=== PATIENT | female | born 1945 | race Caucasian/White ===

== ENCOUNTER → 2016-12-09 | Outpatient (REF) | payer MEDICARE, OTHER ==
[2016-12-09 11:55] LABS: BASO # 0.1 K/mm3 (0.0-0.2); BASO % 1.4 % (0.0-1.0); EOS # 0.2 K/mm3 (0.0-0.50); EOS % 3.3 % (0.0-3.0); LARGE UNSTAINED CELL # 0.1 K/mm3 (0.0-0.4); LARGE UNSTAINED CELL % 2.7 % (0.0-4.0); LYMPH % 38.2 % (24.0-44.0); MEAN CORPUSCULAR HEMOGLOBIN 30.2 pg (27.0-33.0); MEAN CORPUSCULAR VOLUME 91.6 fl (80.0-96.0); MONO # 0.4 K/mm3 (0.0-0.8); MONO % 7.8 % (0.0-5.0); NEUTROPHILS # 2.3 K/mm3 (1.8-7.7); NEUTROPHILS % 46.7 % (36.0-66.0); PLATELET COUNT, AUTOMATED 232 k/mm3 (150-450)
[2016-12-09 12:48] LABS: ALBUMIN 3.8 GM/DL (3.2-5.2); ALBUMIN/GLOBULIN RATIO 1.41 (1.00-1.93); ALKALINE PHOSPHATASE 43 U/L (45-117); ALT/SGPT 26 U/L (12-78); ANION GAP 10 MEQ/L (8-16); AST/SGOT 13 U/L (15-37); BILIRUBIN,TOTAL 0.8 MG/DL (0.2-1.0); BLOOD UREA NITROGEN 21 MG/DL (7-18); CALCIUM LEVEL 9.1 MG/DL (8.8-10.2); CARBON DIOXIDE LEVEL 30 MEQ/L (21-32); CHLORIDE LEVEL 101 MEQ/L (98-107); CHOLESTEROL LEVEL 184 MG/DL (<200); CREATININE FOR GFR 0.66 MG/DL (0.55-1.02); GLOMERULAR FILTRATION RATE > 60.0 (>39); GLUCOSE, FASTING 136 MG/DL (83-110); POTASSIUM SERUM 4.3 MEQ/L (3.5-5.1); SODIUM LEVEL 141 MEQ/L (136-145); TOTAL PROTEIN 6.5 GM/DL (6.4-8.2); TRIGLYCERIDES LEVEL 77 MG/DL (<150)
== END ==
LOC: M LABDRAW1 11:24
PROVIDERS: ATTEND Emergency Medicine
DX: E11.9 Type 2 diabetes mellitus without complications (principal); I10 Essential (primary) hypertension; E78.2 Mixed hyperlipidemia; M54.81 Occipital neuralgia

== ENCOUNTER → 2017-06-09 | Outpatient (CLI) | payer MEDICARE, OTHER ==
[~2017-06-09] VITALS: Ht 152.4 cm; Wt 50.8 kg
[~2017-06-09] MED LIST: CALC600T57 PO; ESCI10TA2 PO; LEVOTAB10 PO; LOSA50TA20 PO; METF10004 PO; NS 1,000 ML IV ONE; PROPOFOL 200 MG/20 ML VIAL As Ordered ONE; SIMV40TA2 PO; VITA-110 PO
[2017-06-09 09:13] LABS: ALBUMIN/GLOBULIN RATIO 1.48 (1.00-1.93); ALKALINE PHOSPHATASE 46 U/L (45-117); ALT/SGPT 25 U/L (12-78); ANION GAP 8 MEQ/L (8-16); AST/SGOT 15 U/L (15-37); BLOOD UREA NITROGEN 14 MG/DL (7-18); CALCIUM LEVEL 9.6 MG/DL (8.8-10.2); CARBON DIOXIDE LEVEL 29 MEQ/L (21-32); CHLORIDE LEVEL 101 MEQ/L (98-107); CHOLESTEROL LEVEL 181 MG/DL (<200); CREATININE FOR GFR 0.56 MG/DL (0.55-1.02); GLOMERULAR FILTRATION RATE > 60.0 (>39); GLUCOSE, FASTING 145 MG/DL (83-110); POTASSIUM SERUM 4.2 MEQ/L (3.5-5.1); SODIUM LEVEL 138 MEQ/L (136-145); TOTAL PROTEIN 6.7 GM/DL (6.4-8.2); TRIGLYCERIDES LEVEL 112 MG/DL (<150)
--- NOTE | 2017-06-09 09:35 | ROOR ---
Patient Name: Bharathi Malhotra Procedure Date: 06/09/2017 9:04 AM Date of : 1945 Age: 72 Room: [facility] Gender: Female Note Status: Finalized Procedure: Colonoscopy Indications: Screening for colorectal malignant neoplasm Providers: Cristóbal Ruby MD Referring MD: ELIZABET MONTAGUE MD Requesting Provider: Medicines: Monitored Anesthesia Care Complications: No immediate complications. Procedure: Pre-Anesthesia Assessment: - Prior to the procedure, a History and Physical was performed, and patient medications and allergies were reviewed. The patient is competent. The risks and benefits of the procedure and the sedation options and risks were discussed with the patient. All questions were answered and informed consent was obtained. Patient identification and proposed procedure were verified by the physician, the nurse and the anesthesiologist in the pre-procedure area in the endoscopy suite. Mental Status Examination: alert and oriented. Airway Examination: normal oropharyngeal airway and neck mobility. Respiratory Examination: clear to auscultation. CV Examination: normal. Prophylactic Antibiotics: The patient does not require prophylactic antibiotics. Prior Anticoagulants: The patient has taken no previous anticoagulant or antiplatelet agents. ASA Grade Assessment: II - A patient with mild systemic disease. After reviewing the risks and benefits, the patient was deemed in satisfactory condition to undergo the procedure. The anesthesia plan was to use monitored anesthesia care (MAC). Immediately prior to administration of medications, the patient was re-assessed for adequacy to receive sedatives. The heart rate, respiratory rate, oxygen saturations, blood pressure, adequacy of pulmonary ventilation, and response to care were monitored throughout the procedure. The physical status of the patient was re-assessed after the procedure. The Colonoscope was introduced through the anus and advanced to the cecum, identified by appendiceal orifice and ileocecal valve. The colonoscopy was performed without difficulty. The patient tolerated the procedure well. The quality of the bowel preparation was good. Findings: The perianal and digital rectal examinations were normal. A diminutive polyp was found in the cecum. The polyp was sessile. The polyp was removed with a jumbo cold forceps. Resection and retrieval were complete. Estimated blood loss was minimal. A few small-mouthed diverticula were found in the sigmoid colon and descending colon. The retroflexed view of the distal rectum and anal verge was normal and showed no anal or rectal abnormalities. Impression: - One diminutive polyp in the cecum, removed with a jumbo cold forceps. Resected and retrieved. - Diverticulosis in the sigmoid colon and in the descending colon. - The distal rectum and anal verge are normal on retroflexion view. Recommendation: - Discharge patient to home (ambulatory). - Repeat colonoscopy in 5 years for surveillance based on pathology results. Cristóbal Ruby MD Cristóbal Ruby MD 06/09/2017 9:35:10 AM This report has been signed electronically. Number of Addenda: 0 Note Initiated On: 06/09/2017 9:04 AM Estimated Blood Loss: Estimated blood loss was minimal.
[2017-06-09 10:11] VITALS: BP 132/70
== END | disposition home or self-care (01) ==
LOC: M OPP 07:50
PROVIDERS: ATTEND Surgery
DX: Z12.11 Encounter for screening for malignant neoplasm of colon (principal); D12.0 Benign neoplasm of cecum; K57.30 Diverticulosis of large intestine without perforation or abscess without bleeding; I10 Essential (primary) hypertension; E11.9 Type 2 diabetes mellitus without complications; E78.5 Hyperlipidemia, unspecified; F41.9 Anxiety disorder, unspecified; Z88.2 Allergy status to sulfonamides; Z79.899 Other long term (current) drug therapy; Z79.84 Long term (current) use of oral hypoglycemic drugs

== ENCOUNTER → 2017-10-07 | Outpatient (REF) | payer MEDICARE, OTHER ==
[~2017-10-07] MED LIST changes: -NS 1,000 ML IV ONE; -PROPOFOL 200 MG/20 ML VIAL As Ordered ONE
[2017-10-07 20:57] LABS: BLOOD UREA NITROGEN 18 MG/DL (7-18); CREATININE FOR GFR 0.73 MG/DL (0.55-1.02); GLOMERULAR FILTRATION RATE > 60.0 (>39)
== END ==
LOC: M LABDRWAD 20:02
PROVIDERS: ATTEND Emergency Medicine
DX: K58.0 Irritable bowel syndrome with diarrhea (principal)

== ENCOUNTER → 2017-10-07 | Outpatient (REF) | payer MEDICARE, OTHER ==
[2017-10-07 14:02] LABS: BASO % 0.3 % (0.0-1.0); EOS # 0.2 10^3/uL (0.0-0.50); EOS % 3.6 % (0.0-3.0); IMMATURE GRANULOCYTE % 0.3 % (0-0); LYMPH # 2.3 10^3/uL (1.5-4.5); LYMPH % 37.9 % (24.0-44.0); MEAN CORPUSCULAR HGB CONC 33.1 g/dl (32.0-36.5); MEAN CORPUSCULAR VOLUME 93.6 fl (80.0-96.0); MONO # 0.6 10^3/uL (0.0-0.8); MONO % 9.6 % (0.0-5.0); NEUTROPHILS % 48.3 % (36.0-66.0); PLATELET COUNT, AUTOMATED 320 10^3/uL (150-450); RED CELL DISTRIBUTION WIDTH 11.9 % (11.5-14.5); WHITE BLOOD COUNT 6.2 10^3/uL (4.0-10.0)
[2017-10-07 14:31] LABS: ERYTHROCYTE SEDIMENTATION RATE 8 mm/hr (0-30)
[2017-10-14 00:07] LABS: DQ2(DQ1A 0501/0505,DQB1 02XX) Negative (.); DQ8(DQA1 03XX, DQB1 0302) Negative (.)
== END ==
LOC: M LAB REF 12:58 → M LABDRWAD 12:59
PROVIDERS: ATTEND Emergency Medicine
DX: K58.0 Irritable bowel syndrome with diarrhea (principal); E11.9 Type 2 diabetes mellitus without complications

== ENCOUNTER → 2018-02-02 | Outpatient (REF) | payer MEDICARE, OTHER ==
[2018-02-02 12:58] LABS: TOTAL 25(OH) VITAMIN D 34.5 NG/ML (30.0-100.0)
[2018-02-02 13:31] LABS: ALBUMIN 3.9 GM/DL (3.2-5.2); ALBUMIN/GLOBULIN RATIO 1.34 (1.00-1.93); ALKALINE PHOSPHATASE 58 U/L (45-117); ALT/SGPT 28 U/L (12-78); ANION GAP 9 MEQ/L (8-16); AST/SGOT 9 U/L (7-37); BLOOD UREA NITROGEN 17 MG/DL (7-18); CALCIUM LEVEL 8.9 MG/DL (8.8-10.2); CARBON DIOXIDE LEVEL 27 MEQ/L (21-32); CHLORIDE LEVEL 104 MEQ/L (98-107); CHOLESTEROL LEVEL 222 MG/DL (<200); CHOLESTEROL RISK RATIO 3.964 (<5); CREATININE FOR GFR 0.69 MG/DL (0.55-1.30); GLOMERULAR FILTRATION RATE > 60.0 (>39); GLUCOSE, FASTING 159 MG/DL (70-100); HDL CHOLESTEROL 56 MG/DL (>40); LDL CHOLESTEROL 131.6 MG/DL (<100); NON-HDL-C 166 MG/DL; POTASSIUM SERUM 4.4 MEQ/L (3.5-5.1); SODIUM LEVEL 140 MEQ/L (136-145); TOTAL PROTEIN 6.8 GM/DL (6.4-8.2); TRIGLYCERIDES LEVEL 172 MG/DL (<150)
[2018-02-02 13:36] LABS: MALB URINE SIEMENS 11.4 MG/L; MAU/CREAT RATIO 9.9 MCG/MG (0.0-30.0)
[2018-02-02 14:00] LABS: ESTIMATED AVERAGE GLUCOSE 154 MG/DL (60-110)
== END ==
LOC: M LABDRWAD 12:09
DX: E55.9 Vitamin D deficiency, unspecified (principal); E78.2 Mixed hyperlipidemia; E11.9 Type 2 diabetes mellitus without complications
CPT/HCPCS: 84443

== ENCOUNTER → 2018-08-11 | Outpatient (CLI) | payer MEDICARE, OTHER | LOC: M WHC 10:25 | DX: Z12.31 Encounter for screening mammogram for malignant neoplasm of breast (principal); M15.0 Primary generalized (osteo)arthritis; Z78.0 Asymptomatic menopausal state | CPT/HCPCS: 77067 ==

== ENCOUNTER → 2018-08-15 | Outpatient (CLI) | payer MEDICARE, OTHER ==
[2018-08-15 13:55] LABS: ALBUMIN 3.9 GM/DL (3.2-5.2); ALBUMIN/GLOBULIN RATIO 1.26 (1.00-1.93); ALKALINE PHOSPHATASE 62 U/L (45-117); ALT/SGPT 31 U/L (12-78); ANION GAP 9 MEQ/L (8-16); AST/SGOT 17 U/L (7-37); BILIRUBIN,TOTAL 0.9 MG/DL (0.2-1.0); BLOOD UREA NITROGEN 17 MG/DL (7-18); CALCIUM LEVEL 9.2 MG/DL (8.8-10.2); CARBON DIOXIDE LEVEL 26 MEQ/L (21-32); CHLORIDE LEVEL 107 MEQ/L (98-107); CHOLESTEROL LEVEL 303 MG/DL (<200); CHOLESTEROL RISK RATIO 5.611 (<5); CREATININE FOR GFR 0.68 MG/DL (0.55-1.30); GLOMERULAR FILTRATION RATE > 60.0 (>39); GLUCOSE, FASTING 164 MG/DL (70-100); HDL CHOLESTEROL 54 MG/DL (>40); LDL CHOLESTEROL 203 MG/DL (<100); NON-HDL-C 249 MG/DL; POTASSIUM SERUM 4.6 MEQ/L (3.5-5.1); SODIUM LEVEL 142 MEQ/L (136-145); TOTAL 25(OH) VITAMIN D 33.7 NG/ML (30.0-100.0); TRIGLYCERIDES LEVEL 230 MG/DL (<150)
[2018-08-15 14:09] LABS: ESTIMATED AVERAGE GLUCOSE 151 MG/DL (60-110); HEMOGLOBIN A1c 6.9 %
== END ==
LOC: M WUC 09:56
DX: E78.2 Mixed hyperlipidemia (principal); E55.9 Vitamin D deficiency, unspecified; E11.9 Type 2 diabetes mellitus without complications
CPT/HCPCS: 80053

== ENCOUNTER → 2018-10-17 | Outpatient (REF) | payer MEDICARE, OTHER ==
[2018-10-17 13:23] LABS: BASO % 0.4 % (0.0-1.0); EOS # 0.1 10^3/uL (0.0-0.50); EOS % 2.1 % (0.0-3.0); HEMATOCRIT 41.3 % (36.0-47.0); HEMOGLOBIN 13.8 g/dl (12.0-15.5); IMMATURE GRANULOCYTE % 0.2 % (0-3.0); MEAN CORPUSCULAR HEMOGLOBIN 30.7 pg (27.0-33.0); MEAN CORPUSCULAR HGB CONC 33.4 g/dl (32.0-36.5); MONO # 0.5 10^3/uL (0.0-0.8); MONO % 9.7 % (0.0-5.0); NEUTROPHILS # 2.6 10^3/uL (1.8-7.7); NEUTROPHILS % 49.6 % (36.0-66.0); PLATELET COUNT, AUTOMATED 263 10^3/uL (150-450); RED BLOOD COUNT 4.49 10^6/uL (4.00-5.40); RED CELL DISTRIBUTION WIDTH 11.9 % (11.5-14.5); WHITE BLOOD COUNT 5.3 10^3/uL (4.0-10.0)
[2018-10-17 13:33] LABS: ALBUMIN 3.8 GM/DL (3.2-5.2); ALBUMIN/GLOBULIN RATIO 1.15 (1.00-1.93); ALKALINE PHOSPHATASE 61 U/L (45-117); ALT/SGPT 42 U/L (12-78); ANION GAP 8 MEQ/L (8-16); AST/SGOT 21 U/L (7-37); BLOOD UREA NITROGEN 16 MG/DL (7-18); CALCIUM LEVEL 8.9 MG/DL (8.8-10.2); CARBON DIOXIDE LEVEL 29 MEQ/L (21-32); CHLORIDE LEVEL 102 MEQ/L (98-107); CHOLESTEROL LEVEL 240 MG/DL (<200); CHOLESTEROL RISK RATIO 5.454 (<5); CREATININE FOR GFR 0.79 MG/DL (0.55-1.30); GLOMERULAR FILTRATION RATE > 60.0 (>39); GLUCOSE, FASTING 168 MG/DL (70-100); HDL CHOLESTEROL 44 MG/DL (>40); LDL CHOLESTEROL 123 MG/DL (<100); NON-HDL-C 196 MG/DL; POTASSIUM SERUM 4.7 MEQ/L (3.5-5.1); SODIUM LEVEL 139 MEQ/L (136-145); TOTAL 25(OH) VITAMIN D 51.2 NG/ML (30.0-100.0); TOTAL PROTEIN 7.1 GM/DL (6.4-8.2); TRIGLYCERIDES LEVEL 364 MG/DL (<150)
[2018-10-17 14:19] LABS: ESTIMATED AVERAGE GLUCOSE 157 MG/DL (60-110); HEMOGLOBIN A1c 7.1 %
[2018-10-17 14:32] LABS: MALB URINE SIEMENS 10.6 MG/L; MAU/CREAT RATIO 10.3 MCG/MG (0.0-30.0)
== END ==
LOC: M LABDRWAD 12:32
DX: E78.2 Mixed hyperlipidemia (principal); E55.9 Vitamin D deficiency, unspecified; E11.9 Type 2 diabetes mellitus without complications; I10 Essential (primary) hypertension; Z79.899 Other long term (current) drug therapy
CPT/HCPCS: 80053

== ENCOUNTER → 2019-03-01 | Outpatient (REF) | payer MEDICARE, OTHER ==
[~2019-03-01] MED LIST changes: -LOSA50TA20 PO; +LOSA50TA88 PO
[2019-03-01 13:09] LABS: BASO % 0.6 % (0.0-1.0); EOS # 0.2 10^3/uL (0.0-0.50); EOS % 3.2 % (0.0-3.0); HEMATOCRIT 39.8 % (36.0-47.0); HEMOGLOBIN 13.3 g/dl (12.0-15.5); LYMPH # 2.2 10^3/uL (1.5-4.5); LYMPH % 41.9 % (24.0-44.0); MEAN CORPUSCULAR HEMOGLOBIN 31.4 pg (27.0-33.0); MEAN CORPUSCULAR HGB CONC 33.4 g/dl (32.0-36.5); MEAN CORPUSCULAR VOLUME 94.1 fl (80.0-96.0); MONO # 0.6 10^3/uL (0.0-0.8); MONO % 11.7 % (0.0-5.0); NEUTROPHILS # 2.3 10^3/uL (1.8-7.7); NEUTROPHILS % 42.4 % (36.0-66.0); PLATELET COUNT, AUTOMATED 240 10^3/uL (150-450); RED BLOOD COUNT 4.23 10^6/uL (4.00-5.40); WHITE BLOOD COUNT 5.3 10^3/uL (4.0-10.0)
[2019-03-01 13:13] LABS: ALBUMIN 3.9 GM/DL (3.2-5.2); ALT/SGPT 40 U/L (12-78); BLOOD UREA NITROGEN 18 MG/DL (7-18); CALCIUM LEVEL 9.3 MG/DL (8.8-10.2); CARBON DIOXIDE LEVEL 29 MEQ/L (21-32); CHLORIDE LEVEL 104 MEQ/L (98-107); CHOLESTEROL LEVEL 234 MG/DL (<200); CREATININE FOR GFR 0.71 MG/DL (0.55-1.30); GLOMERULAR FILTRATION RATE > 60.0 (>39); GLUCOSE, FASTING 166 MG/DL (70-100); HDL CHOLESTEROL 52 MG/DL (>40); LDL CHOLESTEROL 130 MG/DL (<100); NON-HDL-C 182 MG/DL; POTASSIUM SERUM 4.7 MEQ/L (3.5-5.1); SODIUM LEVEL 139 MEQ/L (136-145); TOTAL PROTEIN 6.8 GM/DL (6.4-8.2); TRIGLYCERIDES LEVEL 260 MG/DL (<150)
[2019-03-01 14:22] LABS: HEMOGLOBIN A1c 7.5 %
== END ==
LOC: M LABDRWAD 12:15
PROVIDERS: ATTEND Physician Assistant
DX: E11.69 Type 2 diabetes mellitus with other specified complication (principal)

== ENCOUNTER → 2019-03-23 | Outpatient (CLI) | payer MEDICARE, OTHER ==
--- NOTE | 2019-03-24 09:27 | REP ---
MRI LEFT SHOULDER: TECHNIQUE: Axial T2 fat sat, gradient echo, sagittal oblique T2 fat sat, coronal oblique T1, T2 fat sat. The supraspinatus tendon demonstrates ill-defined high signal with moderate tendinopathy. There is a full thickness partial tear distally of the supraspinatus tendon. There is mild to moderate tendinopathy of the infraspinatus tendon. There are mild hypertrophic degenerative changes of the acromioclavicular joint with a type 2 acromion. Biceps tendon is seen within the bicipital groove with no tenosynovitis. There is no Hill-Sachs deformity. There is a large calcification in the region of the subdeltoid bursa lateral to the humeral head having a craniocaudal dimension of approximately 1.7 cm and a thickness of about 4 mm. There is moderate surrounding fluid in the subdeltoid bursa extending anteriorly. Findings are compatible with calcific bursitis. There is mild fraying of the biceps labral complex. There is a tear of the inferior labrum as well as the posterior labrum. There is mild chondromalacia at the glenohumeral joint. There is minor marrow edema in the lateral humeral head. IMPRESSION: Moderate tendinopathy of the supraspinatus and infraspinatus tendons. There is a full thickness partial tear of the distal supraspinatus tendon. There are mild hypertrophic degenerative changes of the acromioclavicular joint with a type 2 acromion. Moderate degree of calcific bursitis involving the subdeltoid bursa. There is fraying of the biceps labral complex. There is a tear of the inferior labrum as well as the posterior labrum. Electronically Signed by Jesus Vazquez MD 03/24/2019 01:22 P
== END ==
LOC: M RAD 16:01
PROVIDERS: ATTEND Orthopaedic Surgery Sports Medicine
DX: M75.31 Calcific tendinitis of right shoulder (principal); M19.011 Primary osteoarthritis, right shoulder; M24.111 Other articular cartilage disorders, right shoulder

== ENCOUNTER → 2019-06-10 | Outpatient (CLI) | payer MEDICARE, OTHER ==
[2019-06-10 18:23] LABS: HEMOGLOBIN A1c 7.3 %
[2019-06-10 19:25] LABS: ALT/SGPT 41 U/L (12-78); BILIRUBIN,TOTAL 0.7 MG/DL (0.2-1.0); BLOOD UREA NITROGEN 16 MG/DL (7-18); CALCIUM LEVEL 9.6 MG/DL (8.8-10.2); CARBON DIOXIDE LEVEL 29 MEQ/L (21-32); CHLORIDE LEVEL 103 MEQ/L (98-107); CREATININE FOR GFR 0.75 MG/DL (0.55-1.30); GLOMERULAR FILTRATION RATE > 60.0 (>39); GLUCOSE, FASTING 180 MG/DL (70-100); POTASSIUM SERUM 4.9 MEQ/L (3.5-5.1); SODIUM LEVEL 140 MEQ/L (136-145); TOTAL PROTEIN 7.1 GM/DL (6.4-8.2)
== END ==
LOC: M WUC 08:30
PROVIDERS: ATTEND Physician Assistant
DX: E11.69 Type 2 diabetes mellitus with other specified complication (principal)

== ENCOUNTER → 2019-11-02 | Outpatient (REF) | payer MEDICARE, OTHER ==
[~2019-11-02] MED LIST changes: -SIMV40TA2 PO; +SIMV40TA20 PO
[2019-11-02 13:28] LABS: BLOOD UREA NITROGEN 20 MG/DL (7-18); CREATININE FOR GFR 0.78 MG/DL (0.55-1.30); GLUCOSE, FASTING 178 MG/DL (70-100)
[2019-11-02 13:29] LABS: ALBUMIN 3.9 GM/DL (3.2-5.2); ALT/SGPT 41 U/L (12-78); BILIRUBIN,TOTAL 0.9 MG/DL (0.2-1.0); CALCIUM LEVEL 9.4 MG/DL (8.8-10.2); CARBON DIOXIDE LEVEL 29 MEQ/L (21-32); CHLORIDE LEVEL 103 MEQ/L (98-107); CHOLESTEROL LEVEL 255 MG/DL (<200); CHOLESTEROL RISK RATIO 4.473 (<5); GLOMERULAR FILTRATION RATE > 60.0 (>39); HDL CHOLESTEROL 57 MG/DL (>40); LDL CHOLESTEROL 156 MG/DL (<100); NON-HDL-C 198 MG/DL; POTASSIUM SERUM 4.6 MEQ/L (3.5-5.1); SODIUM LEVEL 139 MEQ/L (136-145); TOTAL PROTEIN 7.1 GM/DL (6.4-8.2); TRIGLYCERIDES LEVEL 211 MG/DL (<150)
[2019-11-02 13:36] LABS: TOTAL 25(OH) VITAMIN D 34.8 NG/ML (30.0-100.0)
[2019-11-02 14:22] LABS: HEMOGLOBIN A1c 7.6 %
== END ==
LOC: M LABDRWAD 12:56
PROVIDERS: ATTEND Physician Assistant
DX: E11.69 Type 2 diabetes mellitus with other specified complication (principal); E78.2 Mixed hyperlipidemia; E55.9 Vitamin D deficiency, unspecified; Z79.899 Other long term (current) drug therapy

== ENCOUNTER 2020-02-12 16:11 | Inpatient (IN) | payer MEDICARE, OTHER ==
[~2020-02-12] VITALS: Ht 157.5 cm; Wt 51.7 kg
[~2020-02-12 16:11] MED LIST changes: -GLIM2TAB4 PO; -LOSA100T5 PO; -LOSA100T50 PO; -TRAD5TAB PO; -VITAD1000T PO; -[UNRECOGNIZED DRUG - OTHER]
[2020-02-12] MEDS ORDERED: LOSA100T5 PO (16:19)
[2020-02-12] MEDS ORDERED: GLIM2TAB4 PO (16:42)
[2020-02-12] MEDS ORDERED: TRAD5TAB PO (16:50)
[2020-02-12] MEDS ORDERED: NS 1,000 ML IV SCH (17:15)
[2020-02-12 17:29] LABS: BLOOD UREA NITROGEN 9 MG/DL (7-18); CALCIUM LEVEL 9.5 MG/DL (8.8-10.2); CARBON DIOXIDE LEVEL 32 MEQ/L (21-32); CHLORIDE LEVEL 85 MEQ/L (98-107); CREATININE FOR GFR 0.66 MG/DL (0.55-1.30); FREE T4 1.23 NG/DL (0.76-1.46); GLOMERULAR FILTRATION RATE > 60.0 (>39); GLUCOSE, FASTING 159 MG/DL (70-100); POTASSIUM SERUM 2.9 MEQ/L (3.5-5.1); SODIUM LEVEL 125 MEQ/L (136-145); THYROID STIMULATING HORMONE 1.91 uIU/ML (0.358-3.740)
[2020-02-12 17:36] LABS: HEMATOCRIT 37.8 % (36.0-47.0); HEMOGLOBIN 13.3 g/dl (12.0-15.5); MEAN CORPUSCULAR HEMOGLOBIN 30.6 pg (27.0-33.0); MEAN CORPUSCULAR HGB CONC 35.2 g/dl (32.0-36.5); MEAN CORPUSCULAR VOLUME 87.1 fl (80.0-96.0); PLATELET COUNT, AUTOMATED 350 10^3/uL (150-450); RED BLOOD COUNT 4.34 10^6/uL (4.00-5.40); WHITE BLOOD COUNT 7.4 10^3/uL (4.0-10.0)
[2020-02-12] MEDS ORDERED: KCL 10MEQ/100ML SWI (KRUN) 10 MEQ in IV 1 EA IV ONE (17:45)
[2020-02-12] MEDS ORDERED: POTASSIUM CHLORIDE 10 MEQ SR TABLET PO ONE ×2 (17:45→19:30)
[2020-02-12 17:48] LABS: ALBUMIN 4.1 GM/DL (3.2-5.2); ALT/SGPT 22 U/L (12-78); BILIRUBIN,DIRECT 0.2 MG/DL (0.0-0.2); TOTAL PROTEIN 7.7 GM/DL (6.4-8.2)
[2020-02-12 17:52] LABS: CREATININE,RANDOM URINE 43.7 MG/DL
[2020-02-12 18:09] LABS: MAGNESIUM LEVEL 1.8 MG/DL (1.8-2.4)
--- NOTE | 2020-02-12 18:21 | REP ---
Clinical: Hyponatremia . Comparison: None . Technique: AP and lateral. Findings: The mediastinum and cardiac silhouette are normal. The lung saini are clear and without acute consolidation, effusion, or pneumothorax. The skeletal structures are intact and normal. Impression: 1. No acute cardiopulmonary process. Electronically Signed by Devonte Boyd MD 02/12/2020 06:12 P
[2020-02-12] MEDS ORDERED: amLODIPine 10 MG TAB PO ONE (18:30)
[2020-02-12] MEDS ORDERED: VITAD1000T PO (18:41)
[2020-02-12] MEDS ORDERED: [UNRECOGNIZED DRUG - OTHER] (18:41)
[2020-02-12] MEDS ORDERED: hydrALAZINE INJ 20 MG/ML VIAL IV STA (19:07)
[2020-02-12] MEDS ORDERED: MAG SULF 1GM/100ML (MAG RUN) 1 GM in IV 1 EA IV ONE (19:30)
[2020-02-12 19:32] VITALS: BP 156/72
--- NOTE | 2020-02-12 20:51 | HPE ---
DATE OF ADMISSION: 02/12/2020 CHIEF COMPLAINT: Confusion and decreased appetite. HISTORY OF PRESENT ILLNESS: This is a 75-year-old, FULL CODE, with a history of diabetes, hypertension, hypercholesterolemia, anxiety, recent left shoulder surgery due to rotator cuff injury, who presents to the emergency room with several day history of decreased appetite. The patient has been unable to eat due to no appetite since she had her surgery and return from [place] on 01/03/2020. The patient currently weighs 110 pounds, previously weighed 125 pounds. The patient says that her sugars have been up and down as well, usually runs about 110s and recently 232. No changes in home medications, which includes a blood pressure medication that she says starts with "HC." She did Facetime with her physician and was found to have sodium level of 125 and was urged to come to the emergency room for further evaluation. Per the patient, her has been seeing a significant change in her recent memory. She appears to be much more confused. The will tell her "why don't you sit down, you look like you have dementia." The patient says that she is usually "as sharp as a tack." She has significant recent memory loss and had blood work done. A few minutes later, she asked the ceo na whether the blood work will be done and the ceo na told her that it has already been done and that she has a band-aid on the arm. The patient says that sometimes she does not remember if she took her pills or not and the says that she has been increasingly forgetful since they returned from [place]. According to records, the patient does take hydrochlorothiazide 25 mg for her blood pressure, along with Losartan 100 mg daily. The patient denies any headaches, changes in vision. No gait abnormality. She did vomit a few days ago, one episode at home when she was brushing her teeth and everything came out, including all of her pills. She says that she cannot get warm these days, but denies any fever or rigors. No chills. She has had increasing weakness, having to sit down. No night sweats, cough or shortness of breath. Confusion has been going on for about 2 weeks. In the emergency room, she was found to have a sodium level of 125, potassium 2.9, repleted with potassium chloride. She was found to have hypertensive urgency with a systolic pressure of 170 to 190. Magnesium level was 1.0, which was also repleted. Chest x-ray was negative for any pulmonary nodules. The hospitalist was asked to admit for evaluation and treatment for severe hyponatremia. PAST MEDICAL HISTORY: 1. Hypertension. 2. Diabetes. 3. Hypercholesterolemia. 4. Anxiety. 5. Osteoarthritis. PAST SURGICAL HISTORY: 1. Appendectomy. 2. Tonsillectomy. 3. Adenoidectomy. 4. section. 5. Partial hysterectomy. 6. Laparoscopic cholecystectomy. 7. Left shoulder rotator cuff repair. ALLERGIES: SULFA causing rash. 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 Denies any history of any smoking. Drinks gin and tonic three to four glasses, but quit in December 2011, only did it one to two times with her girlfriends. Father due to a motor vehicle accident. Mother due to coronary artery disease. One brother alive with hypertension, diabetes. Lives with her at home. REVIEW OF SYSTEMS: As per history of present illness. 12-point system otherwise negative. PHYSICAL EXAMINATION: VITAL SIGNS: Temperature 98.2, pulse 65, respiratory rate 18, blood pressure 184/90, repeat blood pressure 202/86. 98% on room air. GENERAL: The patient is awake, alert, oriented to herself. No facial asymmetric. Anicteric. No jaundice. Dry mucous membranes. No jugular venous distention (JVD) or thyromegaly. No cervical lymphadenopathy. LUNGS: Clear to auscultation. No wheezing, rales or rhonchi. HEART: S1, S2. Sinus rhythm. No murmurs, rubs or gallops. ABDOMEN: Soft, nontender, nondistended. Positive bowel sounds times four quadrants. No rebound or guarding. EXTREMITIES: No cyanosis, clubbing or pitting edema. LABORATORY DATA: White count 7.4, hemoglobin 13, hematocrit 37, platelet count 350. Sodium 125, potassium 2.9, chloride 85, bicarbonate 32, BUN 9, creatinine 0.66, glucose 159, osmolarity 259, calcium 9.5, magnesium 1.8, total bilirubin 1, direct bilirubin 8.2, AST 15, ALT 22, alkaline phosphatase 58, total protein 7.7, albumin 4.1, TSH 1.93, Free T4 1.23. UA is negative. Urine osmolarity 326, creatinine 43, urine sodium is 53. ASSESSMENT AND PLAN: 75-year-old female with history of hypercholesterolemia, diabetes, hypertension, recently returned from [place] after a left rotator cuff surgery and since has had a decrease in appetite with a weight loss from 125 to 110 pounds. The patient has been noticed to have increasing confusion at home with memory lapses and was found on routine blood work to have a sodium of 125 and sent to the emergency room for further evaluation. The patient is known to take hydrochlorothiazide but has had no change in her medications. She has been taking this for several months. Chest x-ray is negative for pulmonary nodules. IMPRESSION: 1. Hyponatremia. THe patient has no hyperglycemia, although she says that her sugars are elevated at home, highest was 232. Creatinine is normal. She is known to have used thiazide diuretics, which we have discontinued. She has no fluid overload and appears dry on clinical examination with no pitting edema, clear lungs and chest x-ray being clear. Urine sodium is elevated at 53. TSH is normal. At this time, differential includes diuretic induced versus adrenal insufficiency. TSH is normal. Therefore, we will proceed workup for primary adrenal insufficiency with glucocorticoid and mineralocorticoid deficiency. We will check AM cortisol. Check metabolic panel every 6 hours. Avoid increasing the sodium more than 10 to 12 mEq over 24 hours. 2. Type 2 diabetes. The patient currently is on a consistent carbohydrate diet, sliding scale with coverage and fingersticks before food and nightly. 3. Hypertensive urgency due to severe hyponatremia. We are avoiding diuretics. THe patient's heart rate is currently 66 to 72, unable to use beta blockers, therefore we will give Norvasc and hydralazine with nitroglycerin. 4. Hypercholesterolemia. May resume on her home dose of statins. FULL CODE status.
[2020-02-12] MEDS: HumaLOG INSULIN (NovoLOG) PER UNIT SC SCH (21:00)
[2020-02-12] MEDS: hydrALAZINE INJ 20 MG/ML VIAL IV SCH (21:00)
[2020-02-12] MEDS: NITROGLYCERIN 2% OINT 1 GM *U/D* PKT TOP SCH (21:00)
[2020-02-12] MEDS ORDERED: SLF 3 ML SYR IV PRN (21:00)
[2020-02-12] MEDS ORDERED: COSYNTROPIN 0.25 MG/ML VIAL (J0834 PER 0.25MG) IV ONE (21:00)
[2020-02-12] MEDS: ESCITALOPRAM OXALATE 10 MG TAB (LEXAPRO) PO SCH (21:17)
[2020-02-12] MEDS: SIMVASTATIN 40 MG TAB PO SCH (21:20)
[2020-02-12] MEDS ORDERED: GLUCAGON FOR INJ 1 MG VIAL (J1610) SC PRN (21:30)
[2020-02-12] MEDS ORDERED: GLUCOSE 4 GM CHEW TABLET PO PRN (21:30)
[2020-02-12] MEDS ORDERED: DEXTROSE 50% 50 ML SYRINGE IV PRN (21:30)
[2020-02-12 21:49] LABS: BLOOD UREA NITROGEN 8 MG/DL (7-18); CALCIUM LEVEL 8.6 MG/DL (8.8-10.2); CARBON DIOXIDE LEVEL 30 MEQ/L (21-32); CHLORIDE LEVEL 90 MEQ/L (98-107); GLOMERULAR FILTRATION RATE > 60.0 (>39); GLUCOSE, FASTING 168 MG/DL (70-100); POTASSIUM SERUM 3.8 MEQ/L (3.5-5.1); SODIUM LEVEL 128 MEQ/L (136-145)
[2020-02-12] MEDS: ISOSORBIDE DIN. (ISORDIL) 20 MG TAB PO SCH (22:06)
[2020-02-12] MEDS: SLF 3 ML SYR IV SCH (22:06)
[2020-02-12 22:52] LABS: BLOOD UREA NITROGEN 8 MG/DL (7-18); CARBON DIOXIDE LEVEL 32 MEQ/L (21-32); CHLORIDE LEVEL 90 MEQ/L (98-107); CREATININE FOR GFR 0.56 MG/DL (0.55-1.30); GLOMERULAR FILTRATION RATE > 60.0 (>39); GLUCOSE, FASTING 152 MG/DL (70-100); SODIUM LEVEL 126 MEQ/L (136-145)
[2020-02-13] VITALS: BP 120/58
[2020-02-13] MEDS: NITROGLYCERIN 2% OINT 1 GM *U/D* PKT TOP SCH ×6 (01:00→20:31)
[2020-02-13] MEDS: hydrALAZINE INJ 20 MG/ML VIAL IV SCH ×6 (01:00→20:30)
[2020-02-13 04:00] VITALS: BP 111/57
[2020-02-13] MEDS: ISOSORBIDE DIN. (ISORDIL) 20 MG TAB PO SCH ×3 (04:54→21:22)
[2020-02-13] MEDS: SLF 3 ML SYR IV SCH ×3 (04:54→20:36)
[2020-02-13 05:23] LABS: HEMATOCRIT 34.5 % (36.0-47.0); HEMOGLOBIN 12.1 g/dl (12.0-15.5); MEAN CORPUSCULAR HEMOGLOBIN 30.6 pg (27.0-33.0); MEAN CORPUSCULAR HGB CONC 35.1 g/dl (32.0-36.5); MEAN CORPUSCULAR VOLUME 87.3 fl (80.0-96.0); PLATELET COUNT, AUTOMATED 338 10^3/uL (150-450); RED BLOOD COUNT 3.95 10^6/uL (4.00-5.40); WHITE BLOOD COUNT 6.1 10^3/uL (4.0-10.0)
[2020-02-13 05:37] LABS: BLOOD UREA NITROGEN 6 MG/DL (7-18); CALCIUM LEVEL 8.9 MG/DL (8.8-10.2); CARBON DIOXIDE LEVEL 25 MEQ/L (21-32); CHLORIDE LEVEL 95 MEQ/L (98-107); GLOMERULAR FILTRATION RATE > 60.0 (>39); GLUCOSE, FASTING 180 MG/DL (70-100); POTASSIUM SERUM 4.5 MEQ/L (3.5-5.1); SODIUM LEVEL 129 MEQ/L (136-145)
[2020-02-13 07:58] VITALS: BP 128/61
[2020-02-13] MEDS: VITAMIN D 1,000 INTERNATIONAL UNITS TABLET PO SCH (08:11)
[2020-02-13] MEDS: amLODIPine 10 MG TAB PO SCH (08:12)
[2020-02-13] MEDS: HumaLOG INSULIN (NovoLOG) PER UNIT SC SCH ×4 (08:12→20:03)
[2020-02-13 10:27] LABS: BLOOD UREA NITROGEN 7 MG/DL (7-18); CARBON DIOXIDE LEVEL 29 MEQ/L (21-32); CHLORIDE LEVEL 93 MEQ/L (98-107); CREATININE FOR GFR 0.67 MG/DL (0.55-1.30); GLOMERULAR FILTRATION RATE > 60.0 (>39); GLUCOSE, FASTING 201 MG/DL (70-100); SODIUM LEVEL 128 MEQ/L (136-145)
[2020-02-13 11:37] VITALS: BP 138/63
[2020-02-13 15:57] VITALS: BP 132/63
[2020-02-13 16:33] LABS: BLOOD UREA NITROGEN 8 MG/DL (7-18); CARBON DIOXIDE LEVEL 29 MEQ/L (21-32); CHLORIDE LEVEL 98 MEQ/L (98-107); GLOMERULAR FILTRATION RATE > 60.0 (>39); GLUCOSE, FASTING 93 MG/DL (70-100); POTASSIUM SERUM 4.3 MEQ/L (3.5-5.1); SODIUM LEVEL 132 MEQ/L (136-145)
[2020-02-13 20:00] VITALS: BP 125/60
[2020-02-13] MEDS: ESCITALOPRAM OXALATE 10 MG TAB (LEXAPRO) PO SCH (20:36)
[2020-02-13] MEDS: SIMVASTATIN 40 MG TAB PO SCH (20:36)
--- NOTE | 2020-02-13 21:05 | IPNPDOC ---
Date Seen The patient was seen on 02/13/20. Progress Note SUBJECTIVE: AAOx3, not confused today. Improving sodium with pending AM cortisol, ACTH studies. Remains off of normal saline, drinking well, hemodynamically stable with no complaints. Ambulating well. OBJECTIVE: VITAL SIGNS: Please see below PHYSICAL EXAMINATION: CONSTITUTIONAL: No acute distress, resting comfortably, AAO x 3 EYES: PERRLA, EOM intact HENT, MOUTH: Normocephalic, atraumatic, moist mucous membranes NECK: SUPPLE, no JVD, no lymphadenopathy, no carotid bruit CV: Regular rate and rhythm, S1S2 normal, no murmurs/rubs/gallops RESPIRATORY: Clear to auscultation bilaterally, no rales/rhonchi/wheezes GI: BS positive in 4 quadrants, soft, nontender, nondistended, no rebound or guarding, no organomegaly : Deferred MUSCULOSKELETAL: Normal ROM. No cyanosis, clubbing, swelling, joint deformity, extremity edema INTEGUMENTARY: Intact, no rashes, no lesions, no erythema NEUROLOGIC: Cranial Nerves II-XII are intact, no focal deficits PSYCHIATRIC: Mood and affect are normal CURRENT MEDICATIONS: Please see below LABORATORY DATA: Please see below IMAGING: No new imaging ASSESSMENT: PLAN: 1. Hyponatremia, r/o diuretic cause vs. primary adrenal insuffienciency with glucocorticoid and mineralcorticoid deficiency. TSH wnl, sodium correcting well with holding diuretics and without normal saline. AM cortisol studies, ACTH still pending. F/u all labs in AM. 2. Type 2 diabetes. The patient currently is on a consistent carbohydrate diet, sliding scale with coverage and fingersticks before food and nightly. 3. Hypertension. Stable. C/w current meds. 4. Hypercholesterolemia. May resume on her home dose of statins. DISPOSITION: Improving slowly, hopeful for discharge in next 24-48 hrs. VS, I&O, 24H, Db Vital Signs/I&O Vital Signs Date Time Temp Pulse Resp B/P (MAP) Pulse Ox O2 Delivery O2 Flow Rate FiO2 02/13/20 20:30 125/60 02/13/20 15:57 97.7 69 18 97 Room Air I&O- Last 24 Hours up to 6 AM 02/13/20 06:00 Intake Total 700 ml Output Total 700 ml Balance 0 ml Laboratory Data 24H LABS Laboratory Tests 2 3/23/20 21:05: Anion Gap 8, Glomerular Filtration Rate > 60.0, Uric Acid 2.1L, Calcium Level 8.6L, Cortisol Baseline 10.3 02/12/20 21:53: Bedside Glucose (Misc Panel) 148H 02/12/20 21:56: Cortisol Response to Stim 1/2 Hour 37.4 02/12/20 22:26: Anion Gap 4L, Glomerular Filtration Rate > 60.0, Calcium Level 9.0, Cortisol Response to Stim 1 Hour 43.6 02/13/20 04:58: Nucleated Red Blood Cells % (auto) 0.0, Anion Gap 9, Glomerular Filtration Rate > 60.0, Calcium Level 8.9, Cortisol AM Sample 16.7 02/13/20 07:51: Bedside Glucose (Misc Panel) 144H 02/13/20 09:36: Anion Gap 6L, Glomerular Filtration Rate > 60.0, Calcium Level 9.0 02/13/20 11:49: Bedside Glucose (Misc Panel) 164H 02/13/20 15:59: Anion Gap 5L, Glomerular Filtration Rate > 60.0, Calcium Level 9.0 02/13/20 16:57: Bedside Glucose (Misc Panel) 111H 02/13/20 20:00: Bedside Glucose (Misc Panel) 177H CBC/BMP Laboratory Tests 02/12/20 21:05 02/12/20 22:26 02/13/20 04:58 02/13/20 09:36 02/13/20 15:59 Keke Manzano MD Feb 13, 2020 21:05
[2020-02-13 22:32] LABS: BLOOD UREA NITROGEN 10 MG/DL (7-18); CALCIUM LEVEL 8.6 MG/DL (8.8-10.2); CARBON DIOXIDE LEVEL 29 MEQ/L (21-32); CHLORIDE LEVEL 99 MEQ/L (98-107); CREATININE FOR GFR 0.55 MG/DL (0.55-1.30); GLOMERULAR FILTRATION RATE > 60.0 (>39); GLUCOSE, FASTING 123 MG/DL (70-100); POTASSIUM SERUM 4.1 MEQ/L (3.5-5.1); SODIUM LEVEL 132 MEQ/L (136-145)
[2020-02-14] VITALS: BP 155/74
[2020-02-14] MEDS: hydrALAZINE INJ 20 MG/ML VIAL IV SCH ×4 (00:09→12:16)
[2020-02-14] MEDS: NITROGLYCERIN 2% OINT 1 GM *U/D* PKT TOP SCH ×4 (00:10→12:17)
[2020-02-14 00:11] VITALS: BP 140/68
[2020-02-14 04:00] VITALS: BP 136/69
[2020-02-14 04:26] LABS: HEMATOCRIT 37.5 % (36.0-47.0); HEMOGLOBIN 12.8 g/dl (12.0-15.5); MEAN CORPUSCULAR HEMOGLOBIN 30.5 pg (27.0-33.0); MEAN CORPUSCULAR HGB CONC 34.1 g/dl (32.0-36.5); MEAN CORPUSCULAR VOLUME 89.5 fl (80.0-96.0); PLATELET COUNT, AUTOMATED 358 10^3/uL (150-450); RED BLOOD COUNT 4.19 10^6/uL (4.00-5.40); WHITE BLOOD COUNT 7.4 10^3/uL (4.0-10.0)
[2020-02-14 04:47] LABS: BLOOD UREA NITROGEN 7 MG/DL (7-18); CALCIUM LEVEL 8.5 MG/DL (8.8-10.2); CARBON DIOXIDE LEVEL 30 MEQ/L (21-32); CHLORIDE LEVEL 99 MEQ/L (98-107); CREATININE FOR GFR 0.64 MG/DL (0.55-1.30); GLOMERULAR FILTRATION RATE > 60.0 (>39); GLUCOSE, FASTING 120 MG/DL (70-100); SODIUM LEVEL 133 MEQ/L (136-145)
[2020-02-14] MEDS: ISOSORBIDE DIN. (ISORDIL) 20 MG TAB PO SCH (05:01)
[2020-02-14] MEDS: SLF 3 ML SYR IV SCH (05:01)
[2020-02-14 08:00] VITALS: BP 126/68
[2020-02-14] MEDS: HumaLOG INSULIN (NovoLOG) PER UNIT SC SCH ×2 (08:25→12:16)
[2020-02-14] MEDS: VITAMIN D 1,000 INTERNATIONAL UNITS TABLET PO SCH (08:25)
[2020-02-14] MEDS: amLODIPine 10 MG TAB PO SCH (08:26)
[2020-02-14 10:28] LABS: BLOOD UREA NITROGEN 8 MG/DL (7-18); CALCIUM LEVEL 8.8 MG/DL (8.8-10.2); CARBON DIOXIDE LEVEL 29 MEQ/L (21-32); CHLORIDE LEVEL 99 MEQ/L (98-107); GLOMERULAR FILTRATION RATE > 60.0 (>39); GLUCOSE, FASTING 151 MG/DL (70-100); POTASSIUM SERUM 4.1 MEQ/L (3.5-5.1); SODIUM LEVEL 133 MEQ/L (136-145)
[2020-02-14] MEDS ORDERED: LOSA100T50 PO (10:43)
--- NOTE | 2020-02-14 10:58 | DS.PDOC ---
Discharge Summary General Date of Admission Feb 12, 2020 at 17:50 Date of Discharge 02/14/20 Primary Care Physician: Татьяна Rodríguez Attending Physician: Keke Manzano MD Discharge Summary HISTORY OF PRESENT ILLNESS: Patient is a 75-year-old with a history of diabetes, hypertension, hypercholesterolemia, anxiety, recent left shoulder surgery due to rotator cuff injury, who presents to the emergency room with several day history of decreased appetite. The patient has been unable to eat due to no appetite since she had her surgery and return from [place] on 01/03/2020. The patient currently weighs 110 pounds, previously weighed 125 pounds. The patient says that her sugars have been up and down as well, usually runs about 110s and recently 232. No ch anges in home medications, which includes a blood pressure medication that she says starts with "HC." She did telemedicine with her PCP and was found to have sodium level of 125. She was urged to come to the emergency room for further evaluation. Per the patient, her has been seeing a significant change in her recent memory. She appears to be much more confused. The will tell her "why don't you sit down, you look like you have dementia." The patient says that she is usually "as sharp as a tack." She has significant recent memory loss and had blood work done. A few minutes later, she asked the truck trailer mechanic whether the blood work will be done and the truck trailer mechanic told her that it has already been done and that she has a band-aid on the arm. The patient says that sometimes she does not remember if she took her pills or not and the says that she has been increasingly forgetful since they returned from [place]. According to records, the patient does take hydrochlorothiazide 25 mg for her blood pressure, along with Losartan 100 mg daily. The patient denies any headaches, changes in vision. No gait abnormality. She says that she cannot get warm these days, but denies any fever or rigors. No chills. She has had increasing weakness, having to sit down. No night sweats, cough or shortness of breath. Confusion has been going on for about 2 weeks. In the emergency room, she was found to have a sodium level of 125, potassium 2.9, repleted with potassium chloride. She was found to have hypertensive urgency with a systolic pressure of 170 to 190. Magnesium level was 1.0, which was also repleted. Chest x-ray was negative for any pulmonary nodules. The hospitalist was asked to admit for evaluation and treatment for severe hyponatremia. HOSPITAL COURSE: Inpatient day 2 the patient was guarded by myself at bedside. She was AAOx3, not confused today. Sodium was steadily improving despite being off of IV fluids, diuretic was being held. A.m. cortisol levels later came back within normal limits, unlikely this is glucorticoid deficiency. Patient was evaluated by physical therapy and ambulated well, not requiring any additional services. The patient states that she hasn't been feeling well ever since having surgery done in December of this year. She ate approximately 20-25% of her meals while here; however, she remained hemodynamically stable and appears well nourished currently. Sodium levels on inpatient day 3 showed to be 133, all other electrolytes were within normal range. The patient's confusion which she was having on admission had completely resolved. The patient does complain of feeling cold most the time but she is tiny, TSH was within normal limits and no signs or symptoms of hypothyroidism. I'm also recommending that her primary care provider refer her to a dietitian and continue workup for loss of appetite as outpatient. At the time of discharge the patient denied chest pain, nausea, vomiting, fevers, chills, lightheadedness, dizziness or increased weakness. On 02/14/2020 decision was made to discharge home with close follow-up with her primary care provider, discharge diagnosis likely hyponatremia likely medication induced, diuretic versus SSRI. It is recommended that she follow-up with her PCP in the next 1-2 weeks and at that time get ordered a BMP to follow up sodium levels. A trial period can be done taking her off of the escitalopram by her PCP. She is on a low dose anyway so this should not be difficult to switch her to another medication. REVIEW OF SYSTEMS: CONSTITUTIONAL: Denies unexplained weight gain or weight loss,fever, night sweats EYES: Denies eye drainage, eye pain, visual changes, dry/irritated eye EARS, NOSE, MOUTH, THROAT: Denies difficulty hearing, ringing in ears, mouth sores, loose teeth, sore throat, facial numbness or pain NECK: Denies swollen glands CARDIOVASCULAR: Denies irregular heartbeat, racing heart, chest pains, swelling of feet or legs, pain in legs with walking RESPIRATORY: Denies shortness of breath, night sweats, wheezing, sputum production, oxygen at home, coughing up blood, cough lasting > 1 month GASTROINTESTINAL: Denies abdominal pain, constipation, bloody stool, diarrhea, heartburn, nausea, vomiting GENITOURINARY: Denies painful urination, bloody urine, frequent urination, urgency, leaking urine, impotence MUSCULOSKELETAL: Denies joint pain, muscle pain, leg swelling INTEGUMENTARY: Denies rash, itching, new skin lesion, change in existing skin lesion, hair loss or increase, breast changes. NEUROLOGICAL: Denies headaches, dizziness, difficulty walking, numbness or tingling PSYCHIATRIC: Denies depression, anxiety, recurrent bad thoughts, mood swings, hallucinations PAST MEDICAL HISTORY: 1. Hypertension. 2. Diabetes. 3. Hypercholesterolemia. 4. Anxiety. 5. Osteoarthritis 6. Loss of appetite PAST SURGICAL HISTORY: 1. Appendectomy. 2. Tonsillectomy. 3. Adenoidectomy. 4. section. 5. Partial hysterectomy. 6. Laparoscopic cholecystectomy. 7. Left shoulder rotator cuff repair. SOCIAL HISTORY: Denies alcohol, drug or smoking history. Lives locally with her . PCP- Татьяна Rodríguez MD. ALLERGIES: Please see below. DISCHARGE MEDICATIONS: Please see below. PHYSICAL EXAMINATION: CONSTITUTIONAL: No acute distress, resting comfortably, AAO x 3 EYES: PERRLA, EOM intact HENT, MOUTH: Normocephalic, atraumatic, moist mucous membranes NECK: SUPPLE, no JVD, no lymphadenopathy, no carotid bruit CV: Regular rate and rhythm, S1S2 normal, no murmurs/rubs/gallops RESPIRATORY: Clear to auscultation bilaterally, no rales/rhonchi/wheezes GI: BS positive in 4 quadrants, soft, nontender, nondistended, no rebound or guarding, no organomegaly : Deferred MUSCULOSKELETAL: Normal ROM. No cyanosis, clubbing, swelling, joint deformity, extremity edema INTEGUMENTARY: Intact, no rashes, no lesions, no erythema NEUROLOGIC: Cranial Nerves II-XII are intact, no focal deficits PSYCHIATRIC: Mood and affect are normal LABORATORY DATA: Please see below IMAGING: See transcribed reports ASSESSMENT: Patient is a 75 y/o F with acute hyponatremia likely secondary medication induced (diuretic vs. SSRI) discharging today. PLAN: 1. Acute hyponatremia, likely medication induced. Cannot r/o diuretic cause vs. SSRI. 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 TSH wnl, AM cortisol wnl. Sodium improving, 133 currently and minimally low. Patient states that she is very strict with her diet and restricts often. I told her to be more lenient with her diet, as she may be restricting too much. D/pamella diuretic at discharge. Recommend PCP recheck BMP on next visit. 2. Decreased appetite. Possibly secondary to above issues. Patient is also very strict on diet, restricts a lot of foods due to her medical issues. Since her restrictions have been harsher, her appetite has decreased. Would recommend speaking with PCP and possibly casino host as outpatient to monitor for ? eating disorder. States this all began earlier this year after her surgery. 2. Type 2 diabetes. Stable. C/w consistent carbohydrate diet, home medicatio ns. 3. Hypertension. Stable. d/pamella HCTZ, started on losartan alone. C/w other meds. 4. Hypercholesterolemia. C/w statin. DISPOSITION: Discharging home today in improved condition TIME SPENT ON DISCHARGE: 25 mins Vital Signs/I&Os Vital Signs Date Time Temp Pulse Resp B/P (MAP) Pulse Ox O2 Delivery O2 Flow Rate FiO2 02/14/20 08:27 126/68 02/14/20 08:26 68 02/14/20 08:00 96.2 16 96 Room Air I&O- Last 24 Hours up to 6 AM 02/14/20 06:00 Intake Total 1680 ml Output Total 1850 ml Balance -170 ml Laboratory Data Labs 24H Laboratory Tests 2 02/13/20 11:49: Bedside Glucose (Misc Panel) 164H 02/13/20 15:59: Anion Gap 5L, Glomerular Filtration Rate > 60.0, Calcium Level 9.0 02/13/20 16:57: Bedside Glucose (Misc Panel) 111H 02/13/20 20:00: Bedside Glucose (Misc Panel) 177H 02/13/20 22:04: Anion Gap 4L, Glomerular Filtration Rate > 60.0, Calcium Level 8.6L 02/14/20 04:16: Anion Gap 4L, Glomerular Filtration Rate > 60.0, Calcium Level 8.5L, Nucleated Red Blood Cells % (auto) 0.0 02/14/20 09:58: Anion Gap 5L, Glomerular Filtration Rate > 60.0, Calcium Level 8.8 CBC/BMP Laboratory Tests 02/13/20 15:59 02/13/20 22:04 02/14/20 04:16 02/14/20 09:58 FSBS Laboratory Tests Test 02/13/20 11:49 02/13/20 16:57 02/13/20 20:00 Range/Units Bedside Glucose (Misc Panel) 164 111 177 83-110 MG/DL Discharge Medications Scheduled Calcium Carbonate/Vitamin D3 (Calcium 600-Vit D3 200 Tablet) 1 Tab Tab, 1 TAB PO DAILY, (Reported) Cholecalciferol (Vitamin D3) (Vitamin D3) 1,000 Unit Tablet, 1,000 UNITS PO DAILY, (Reported) Escitalopram Oxalate (Escitalopram Oxalate) 10 Mg Tab, 10 MG PO QHS, (Reported) Glimepiride (Glimepiride) 2 Mg Tablet, 2 MG PO DAILY, (Reported) Linagliptin (Tradjenta) 5 Mg Tablet, 5 MG PO DAILY, (Reported) Losartan Potassium (Losartan Potassium) 100 Mg Tablet, 100 MG PO DAILY Simvastatin (Simvastatin) 40 Mg Tab, 40 MG PO QHS, (Reported) Allergies Coded Allergies: Sulfa (Sulfonamide Antibiotics) (Verified Allergy, Intermediate, rash, 02/12/20) Keke Manzano MD Feb 14, 2020 10:58
[2020-02-14 12:00] VITALS: BP 124/72
[2020-02-14 12:17] VITALS: BP 126/74
== END 2020-02-14 14:10 | disposition home or self-care (01) | DRG 641 ==
LOC: M ED 16:11 → M ED INP 17:50 → ENRESERVDT 18:08 → ENRESERVTM 18:08 → M PCU 19:38
PROVIDERS: ADMIT General Practice; ATTEND Internal Medicine
DX: E87.1 Hypo-osmolality and hyponatremia (principal); R41.0 Disorientation, unspecified; E11.9 Type 2 diabetes mellitus without complications; I10 Essential (primary) hypertension; E78.00 Pure hypercholesterolemia, unspecified; F41.9 Anxiety disorder, unspecified; I16.0 Hypertensive urgency; Z79.899 Other long term (current) drug therapy

== ENCOUNTER → 2020-02-12 | Outpatient (REF) | payer MEDICARE, OTHER ==
[~2020-02-12] MED LIST changes: +GLIM2TAB4 PO; +LOSA100T5 PO; +LOSA100T50 PO; +TRAD5TAB PO; +VITAD1000T PO; +[UNRECOGNIZED DRUG - OTHER]
[2020-02-12 12:32] LABS: APPEARANCE, URINE CLEAR (CLEAR); BACTERIA, URINE AUTO NEGATIVE (NEGATIVE); BILIRUBIN, URINE AUTO NEGATIVE (NEGATIVE); BLOOD, URINE BLOOD NEGATIVE (NEGATIVE); COLOR, URINE YELLOW (YELLOW); GLUCOSE, URINE (UA) AUTO 2+ mg/dL (NEGATIVE); KETONE, URINE AUTO NEGATIVE (NEGATIVE); LEUKOCYTE ESTERASE, URINE AUTO NEGATIVE (NEGATIVE); NITRITE, URINE AUTO NEGATIVE (NEGATIVE); PROTEIN, URINE AUTO NEGATIVE (NEGATIVE); RBC, URINE AUTO 1 /HPF (0-3); SPECIFIC GRAVITY URINE AUTO 1.008 (1.002-1.035); SQUAMOUS EPITHELIAL CELL UR AU 0 /HPF (0-6); UROBILINOGEN, URINE AUTO 0.2 mg/dL (0.0-2.0); WBC, URINE AUTO 0 /HPF (0-3)
[2020-02-12 12:41] LABS: BASO % 0.3 % (0.0-1.0); EOS % 0.3 % (0.0-3.0); HEMATOCRIT 39.9 % (36.0-47.0); HEMOGLOBIN 13.9 g/dl (12.0-15.5); LYMPH # 1.3 10^3/uL (1.5-5.0); LYMPH % 17.6 % (24.0-44.0); MEAN CORPUSCULAR HEMOGLOBIN 30.5 pg (27.0-33.0); MEAN CORPUSCULAR HGB CONC 34.8 g/dl (32.0-36.5); MEAN CORPUSCULAR VOLUME 87.5 fl (80.0-96.0); MONO # 0.8 10^3/uL (0.0-0.8); MONO % 10.2 % (0.0-5.0); NEUTROPHILS # 5.3 10^3/uL (1.5-8.5); NEUTROPHILS % 71.2 % (36.0-66.0); PLATELET COUNT, AUTOMATED 392 10^3/uL (150-450); RED BLOOD COUNT 4.56 10^6/uL (4.00-5.40); WHITE BLOOD COUNT 7.4 10^3/uL (4.0-10.0)
[2020-02-12 13:43] LABS: HEMOGLOBIN A1c 7.4 %
[2020-02-12 14:28] LABS: BLOOD UREA NITROGEN 10 MG/DL (7-18); CARBON DIOXIDE LEVEL 32 mmol/L (20-29); CHLORIDE LEVEL 86 MEQ/L (98-107); CREATININE FOR GFR 0.76 MG/DL (0.55-1.30); GLOMERULAR FILTRATION RATE > 60.0 (>39); GLUCOSE, FASTING 189 MG/DL (70-100); POTASSIUM SERUM 3.5 MEQ/L (3.5-5.1); SODIUM LEVEL 126 MEQ/L (136-145)
[2020-02-12 14:29] LABS: ALT/SGPT 25 U/L (12-78); BILIRUBIN,TOTAL 1.2 MG/DL (0.2-1.0); CALCIUM LEVEL 9.8 MG/DL (8.8-10.2); TOTAL PROTEIN 7.5 GM/DL (6.4-8.2)
[2020-02-12 14:30] LABS: ALBUMIN 4.2 GM/DL (3.2-5.2)
== END ==
LOC: M LABDRWAD 12:13
PROVIDERS: ATTEND Nurse Practitioner Family
DX: R41.0 Disorientation, unspecified (principal); E11.69 Type 2 diabetes mellitus with other specified complication

== ENCOUNTER → 2020-02-20 | Outpatient (REF) | payer MEDICARE, OTHER ==
[~2020-02-20] MED LIST changes: +GLIM2TAB4 PO; +LOSA100T5 PO; +LOSA100T50 PO; +TRAD5TAB PO; +VITAD1000T PO; +[UNRECOGNIZED DRUG - OTHER]
[2020-02-20 13:31] LABS: BLOOD UREA NITROGEN 9 MG/DL (7-18); CALCIUM LEVEL 9.2 MG/DL (8.8-10.2); CARBON DIOXIDE LEVEL 29 MEQ/L (21-32); CHLORIDE LEVEL 97 MEQ/L (98-107); CREATININE FOR GFR 0.73 MG/DL (0.55-1.30); GLOMERULAR FILTRATION RATE > 60.0 (>39); GLUCOSE, FASTING 201 MG/DL (70-100); POTASSIUM SERUM 4.3 MEQ/L (3.5-5.1); SODIUM LEVEL 133 MEQ/L (136-145)
[2020-02-20 14:29] LABS: OSMOLALITY SERUM 296 MOSM/KG (280-301)
== END ==
LOC: M LAB REF 12:22 → M LABDRWAD 12:22
PROVIDERS: ATTEND Internal Medicine Endocrinology, Diabetes & Metabolism
DX: E87.1 Hypo-osmolality and hyponatremia (principal)

== ENCOUNTER 2020-02-26 22:41 | Inpatient (IN) | payer MEDICARE, OTHER ==
[~2020-02-26] VITALS: Ht 160 cm; Wt 60.8 kg
[2020-02-26] MEDS ORDERED: ACETAMINOPHEN 650 MG SUPP PR ONE (23:00)
[2020-02-26 23:17] LABS: BASO % 0.1 % (0.0-1.0); HEMATOCRIT 38.4 % (36.0-47.0); HEMOGLOBIN 12.9 g/dl (12.0-15.5); LYMPH # 0.4 10^3/uL (1.5-5.0); LYMPH % 2.6 % (24.0-44.0); MEAN CORPUSCULAR HGB CONC 33.6 g/dl (32.0-36.5); MEAN CORPUSCULAR VOLUME 92.3 fl (80.0-96.0); MONO # 0.5 10^3/uL (0.0-0.8); NEUTROPHILS # 14.5 10^3/uL (1.5-8.5); NEUTROPHILS % 93.8 % (36.0-66.0); PLATELET COUNT, AUTOMATED 351 10^3/uL (150-450); RED BLOOD COUNT 4.16 10^6/uL (4.00-5.40); WHITE BLOOD COUNT 15.4 10^3/uL (4.0-10.0)
[2020-02-26 23:43] LABS: ALBUMIN 4.2 GM/DL (3.2-5.2); ALT/SGPT 29 U/L (12-78); BILIRUBIN,DIRECT 0.2 MG/DL (0.0-0.2); BLOOD UREA NITROGEN 9 MG/DL (7-18); CARBON DIOXIDE LEVEL 26 MEQ/L (21-32); CHLORIDE LEVEL 96 MEQ/L (98-107); CREATININE FOR GFR 0.82 MG/DL (0.55-1.30); GLOMERULAR FILTRATION RATE > 60.0 (>39); GLUCOSE, FASTING 268 MG/DL (70-100); LIPASE 64 U/L (73-393); POTASSIUM SERUM 4.3 MEQ/L (3.5-5.1); SODIUM LEVEL 130 MEQ/L (136-145); TOTAL PROTEIN 7.6 GM/DL (6.4-8.2)
[2020-02-26 23:55] LABS: INR 1.02; PROTHROMBIN TIME 13.1 SECONDS (11.8-14.0)
[2020-02-26 23:56] LABS: PARTIAL THROMBOPLASTIN TIME 22.3 SECONDS (25.0-38.4)
[2020-02-27] MEDS ORDERED: NS 1,000 ML IV ONE
[2020-02-27] MEDS ORDERED: ISOVUE-370 76% 100ML VIAL As Ordered ONE (01:05)
[2020-02-27 01:45] VITALS: BP 148/67
--- NOTE | 2020-02-27 01:50 | REPVR ---
PROCEDURE INFORMATION: Exam: CT Head Without Contrast Exam date and time: 02/27/2020 12:33 AM Age: 75 years old Clinical indication: Altered mental status/memory loss; Confusion or disorientation TECHNIQUE: Imaging protocol: Computed tomography of the head without contrast. Radiation optimization: All CT scans at this facility use at least one of these dose optimization techniques: automated exposure control; mA and/or kV adjustment per patient size (includes targeted exams where dose is matched to clinical indication); or iterative reconstruction. Other technique: STROKE PROTOCOL was implemented. COMPARISON: No relevant prior studies available. FINDINGS: Brain: There is a large amount of acute intra-axial hemorrhage centered in the right basal ganglia and right temporal lobe with surrounding vasogenic edema, sulcal effacement, and local mass effect, and the hemorrhage measures approximately 7.6 cm in transverse dimension by 6.1 cm in anterior to posterior dimension by 4.6 cm in craniocaudal dimension (image 15 of the axial series 201 and image 21 of the coronal series 203). There is a 1.7 cm x 0.9 cm x 0.9 cm focus of intra-axial hemorrhage in the right occipital lobe with surrounding vasogenic edema (image 12 of the axial series 201 and image 33 of the coronal series 203). There is also a 0.9 cm x 0.9 cm x 1.1 cm focus of intra-axial hemorrhage in the left occipital lobe with surrounding vasogenic edema (image 11 of the axial series 201 and image 36 of the coronal series 203). There is a 3.4 cm cystic lesion along the medial aspect of the left temporal occipital lobe with surrounding vasogenic edema (image 30 of the coronal series 203). There is a trace amount of acute subarachnoid hemorrhage in the superior aspect of the left sylvian fissure (image 24 of the coronal series 203 and image 18 of the axial series 201). Brainstem: Unremarkable. Midline shift: There is an 11 mm right to left midline shift at the level of the 3rd ventricle (image 16 of the axial series 201). Ventricles: There is mass effect and partial effacement of the right lateral ventricle. No hydrocephalus is noted. There is a trace amount of acute hemorrhage layering in the dependent portions of the occipital horns of both lateral ventricles. Bones/joints: Unremarkable. No acute fracture. Sinuses: The sinuses are clear. The ostiomeatal units are patent. The infundibuli are bordered laterally by orbit on both sides. Mastoid air cells: Clear. Orbits: The globes and orbits are intact and normal in appearance. Soft tissues: Unremarkable. Vasculature: There are atherosclerotic calcifications of the intracranial portion of the vertebral arteries and internal carotid arteries. IMPRESSION: 1. 7.6 cm x 6.1 cm x 4.6 cm region of acute intra-axial hemorrhage centered in the right basal ganglia and right temporal lobe, with associated vasogenic edema, local mass effect, sulcal effacement, and a right to left midline shift of 11 mm. Differential diagnostic considerations include a hemorrhagic tumor, metastasis, hypertensive hemorrhage, hemorrhagic right MCA territory infarct, or ruptured aneurysm. Further evaluation with a MRI brain without and with intravenous contrast is suggested. 2. 1.7 cm x 0.9 cm x 0.9 cm focus of intra-axial hemorrhage in the right occipital lobe, a 0.9 cm x 0.9 cm x 1.1 cm focus of intra-axial hemorrhage in the left occipital lobe, and a 3.4 cm cystic lesion along the medial aspect of the left temporal occipital lobe, which may represent metastatic deposits. 3. Trace amount of acute subarachnoid hemorrhage in the superior aspect of the left sylvian fissure and layering in the dependent portion of the occipital horns of both lateral ventricles. ASSESSMENT: ASPECTS ([place] Stroke Program Early CT Score) is 4 out of 10. Electronically signed by: Pranav Abbott On 02/27/2020 01:50:06 AM
[2020-02-27] MEDS ORDERED: ONDANSETRON 4MG/2ML VIAL IV PRN (02:15)
[2020-02-27] MEDS ORDERED: FLEET ENEMA PR PRN (02:15)
[2020-02-27] MEDS ORDERED: BISACODYL 10 MG SUPP PR PRN (02:15)
[2020-02-27] MEDS ORDERED: ACETAMINOPHEN 650 MG SUPP PR PRN (02:15)
--- NOTE | 2020-02-27 03:09 | HPEPDOC ---
[facility] Medical History & Physical Date of Admission Feb 27, 2020 Date of Service: Feb 27, 2020 Attending Physician: ULYSSES MICHELLE MD History and Physical TIME OF SERVICE: 3:15 AM CHIEF COMPLAINT: Confusion HISTORY OF PRESENT ILLNESS: The history was obtained from the patient's family members were at the bedside This 75-year-old female was last admitted on February 11 for management of medication induced hyponatremia; she was also complaining of a poor appetite and had lost a lot of weight. After being discharged on February 13 the patient's noted that her appetite had not improved, she seemed confused, and had "horrible breath" which was unusual for her. Yesterday morning the patient co mplaining of stomach pain; later on the evening she began to slur her words. By the time EMS brought the patient to the hospital she was unresponsive and not moving the left side of her body. Per Dr. Toussaint her Tmax was 100.[address] of the brain showed multiple hemorrhagic masses; the patient's family elected to transition her to ENTERPRISE MOBILITY ARCHITECT; she is DNR/DNI. REVIEW OF SYSTEMS: Unobtainable because the patient has altered mental status PAST MEDICAL/ SURGICAL HISTORY: IDDM. Chronic HTN Dyslipidemia OA Appendectomy Tonsillectomy Adenoidectomy Partial hysterectomy Laparoscopic cholecystectomy Left rotator cuff repair SOCIAL HISTORY: Doesn't smoke Drinks socially Lives with her FAMILY HISTORY: CAD HTN DM ALLERGIES: Please see below. HOME MEDICATIONS: Please see below. PHYSICAL EXAMINATION: Vital Signs Date Time Temp Pulse Resp B/P (MAP) Pulse Ox O2 Delivery O2 Flow Rate FiO2 02/26/20 22:55 196/91 (126) 02/26/20 22:56 78 93 02/26/20 23:34 102.0 18 Room Air 02/27/20 00:06 94 GEN: Slim build HEENT: Has slight temporal wasting/mucus membranes dry/eyes are closed CVS: RRR/NMRG LUNGS: Expiratory rhonchi MSK/EXTREMITIES: She is able to move her right arm and her right leg NEURO/ PSYCH: Her eyes are closed, she's not speaking and is not following commands, LABORATORY DATA: 02/26/20 23:03: Prothrombin Time 13.1, Prothromb Time International Ratio 1.02, Activated Partial Thromboplast Time 22.3L 02/26/20 23:04: Immature Granulocyte % (Auto) 0.5, Neutrophils (%) (Auto) 93.8H, Lymphocytes (%) (Auto) 2.6L, Monocytes (%) (Auto) 3.0, Eosinophils (%) (Auto) 0.0, Basophils (%) (Auto) 0.1, Neutrophils # (Auto) 14.5H, Lymphocytes # (Auto) 0.4L, Monocytes # (Auto) 0.5, Eosinophils # (Auto) 0.0, Basophils # (Auto) 0.0, Nucleated Red Blood Cells % (auto) 0.0, Urine Color STRAW, Urine Appearance CLEAR, Urine pH 7.0, Urine Specific [place] 1.017, Urine Protein 1+H, Urine Glucose (UA) 3+H, Urine Ketones 1+H, Urine Blood NEGATIVE, Urine Nitrite NEGATIVE, Urine Bilirubin NEGATIVE, Urine Urobilinogen 0.2, Urine Leukocyte Esterase NEGATIVE, Urine WBC (Auto) 0, Urine RBC (Auto) 1, Urine Hyaline Casts (Auto) 0, Urine Bacteria (Auto) NEGATIVE, Urine Squamous Epithelial Cells 0, Urine Sperm (Auto) , Anion Gap 8, Glomerular Filtration Rate > 60.0, Lactic Acid Level 5.1*H, Calcium Level 9.0, Total Bilirubin 1.0, Direct Bilirubin 0.2, Aspartate Amino Transf (AST/SGOT) 17, Alanine Aminotransferase (ALT/SGPT) 29, Alkaline Phosphatase 54, Total Protein 7.6, Albumin 4.2, Albumin/Globulin Ratio 1.24, Lipase 64L IMAGING: CT head "IMPRESSION: 1. 7.6 cm x 6.1 cm x 4.6 cm region of acute intra-axial hemorrhage centered in the right basal ganglia and right temporal lobe, with associated vasogenic edema, local mass effect, sulcal ffacement, and a right to left midline shift of 11 mm. Differential diagnostic considerations include a hemorrhagic tumor, metastasis, hypertensive hemorrhage, hemorrhagic right MCA territory infarct, or ruptured aneurysm. Further evaluation with a MRI brain without and with intravenous contrast is suggested. 2. 1.7 cm x 0.9 cm x 0.9 cm focus of intra-axial hemorrhage in the right occipital lobe, a 0.9 cm x 0.9 cm x 1.1 cm focus of intra-axial hemorrhage in the left occipital lobe, and a 3.4 cm cystic lesion along the medial aspect of the left temporal occipital lobe, which may represent metastatic deposits. 3. Trace amount of acute subarachnoid hemorrhage in the superior aspect of the left sylvian fissure and layering in the dependent ortion of the occipital horns of both lateral ventricles. ASSESSMENT: ASPECTS ([place] Stroke Program Early CT Score) is 4 out of 10. " ASSESSMENT: Ms. Malhotra is a 75-year-old with a history of IDDM, chronic HTN, dyslipidemia, and OA who was found to have multiple hemorrhagic infarcts and is admitted for comfort measures pending discharge planning. PLAN: 1. Multiple hemorrhagic infarcts Since her CT ASPECTS score is less than 8 (4/10) she has a greater likelihood of poor functional outcome Plan: ENTER[employer]ISE MOBILITY ARCHITECT order set w acetaminophen, atropine, ativan and morphine / dc all non essential meds / PFS consult for disposition DVT PROPHYLAXIS: n/a bc she is ENTERPRISE MOBILITY ARCHITECT status DISPOSITION: may need more than 2 midnight's stay Home Medications Scheduled Calcium Carbonate/Vitamin D3 (Calcium 600-Vit D3 200 Tablet) 1 Tab Tab, 1 TAB PO DAILY Cholecalciferol (Vitamin D3) (Vitamin D3) 1,000 Unit Tablet, 1,000 UNITS PO DAILY Escitalopram Oxalate (Escitalopram Oxalate) 10 Mg Tab, 10 MG PO QHS Glimepiride (Glimepiride) 2 Mg Tablet, 2 MG PO DAILY Linagliptin (Tradjenta) 5 Mg Tablet, 5 MG PO DAILY Losartan Potassium (Losartan Potassium) 100 Mg Tablet, 100 MG PO DAILY Simvastatin (Simvastatin) 40 Mg Tab, 40 MG PO QHS Allergies Coded Allergies: Sulfa (Sulfonamide Antibiotics) (Verified Allergy, Intermediate, rash, 02/12/20) A-FIB/CHADSVASC A-FIB History Current/History of A-Fib/PAF?: No Current PO Anticoag Therapy: No ULYSSES MICHELLE MD Feb 27, 2020 03:09
[2020-02-27] MEDS: MORPHINE 10MG/0.5ML ORAL CONCENTRATE SOLUTION U/D SL PRN ×2 (03:30→15:40)
[2020-02-27] MEDS: SCOPOLAMINE 1MG TRANSDERMAL PATCH TOP PRN (05:30)
--- NOTE | 2020-02-27 07:41 | REP ---
REASON: Fever. COMPARISON: 02/12/2020 CHEST PORTABLE: FINDINGS: The technique utilized in obtaining the radiograph has magnified the cardiac silhouette and accentuated the interstitial markings. The superior mediastinal structures are midline. The cardiac silhouette is unremarkable in size, shape, and position. The diaphragmatic surfaces of the lungs are regular, and the costophrenic angles are clear. The pulmonary saini are clear. The imaged osseous structures are intact. IMPRESSION: There is no acute cardiopulmonary disease. No significant change from the prior exam. Electronically Signed by Levi Cortez DO 02/27/2020 11:36 A
[2020-02-27] MEDS ORDERED: LORazepam 2 MG/ML VIAL (J2060) As Ordered ONE (12:35)
[2020-02-27] MEDS: LORazepam 2 MG/ML VIAL (J2060) IV PRN (12:43)
[2020-02-27] MEDS: ATROPINE SULFATE 1% OP SOLN 2 ML BTL SL PRN ×2 (12:59→15:40)
--- NOTE | 2020-02-27 17:09 | IPNPDOC ---
Text Note Date of Service The patient was seen on 02/27/20. NOTE S: Pt examined at bedside. Is MOTOR SCOOTER REPAIRER status and noted to be resting comfortably. , daughter, son-in-law present at bedside and note patient has been comfortable since admission and have no concerns. PE: Resting comfortably. No acute distress. Fast asleep. Unable to communicate. A/P: This is a 75-year-old female brought in by EMS for fever and altered mentation since yesterday evening. She was brought in unresponsive and found to have on head CT multiple acute hemorrhages with vasogenic edema, local mass effect, midline shift suggesting brain compression. Likely encephalopathic from her hemorrhagic infarcts. Family elected to make her comfort measures only. MOTOR SCOOTER REPAIRER orders in and providing adequate comfort. Family would like to keep her in the hospital until she passes. We have offered the family our support and in the meantime, will make her ALC status. VS,Fishbone, I+O VS, Fishbone, I+O Laboratory Tests 02/26/20 23:04 Vital Signs Date Time Temp Pulse Resp B/P (MAP) Pulse Ox O2 Delivery O2 Flow Rate FiO2 02/27/20 15:40 16 02/27/20 01:59 95 02/27/20 01:58 102.5 02/27/20 01:56 80 02/27/20 01:45 148/67 (94) 02/27/20 00:06 Room Air 94 I&O- Last 24 Hours up to 6 AM 02/27/20 05:59 Intake Total 400 ml Output Total 30 ml Balance 370 ml GME ATTESTATION GME ATTESTATION My faculty preceptor for this patient encounter was physically present during the encounter and was fully available. All aspects of the patient interview, examination, medical decision making process, and medical care plan development were reviewed and approved by the faculty preceptor. The faculty preceptor is aware and concurs with the plan as stated in the body of this note and will atte st to such by his/her cosignature. ATTENDING NOTE I, Bernardo Watkins, have independently examined this patient and performed my own physical exam, as well as reviewed the documentation and edited where necessary. I have discussed in detail with the resident / student the findings and plan of treatment as documented by the resident / student and edited their note. I agree with their findings and treatment plan and have edited their documentation. I will continue to follow the patient during this hospital stay. DEE ALFARO DO Feb 27, 2020 17:09 BERNARDO WATKINS MD Feb 27, 2020 17:44
--- NOTE | 2020-02-28 09:52 | ECGEPIP ---
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
[2020-02-29] MEDS: MORPHINE 10MG/0.5ML ORAL CONCENTRATE SOLUTION U/D SL PRN (18:02)
[2020-02-29] MEDS: LORazepam 2 MG/ML VIAL (J2060) IV PRN (23:34)
[2020-03-01] MEDS: MORPHINE 10MG/0.5ML ORAL CONCENTRATE SOLUTION U/D SL PRN (05:28)
[2020-03-01] MEDS: ATROPINE SULFATE 1% OP SOLN 2 ML BTL SL PRN (15:35)
[2020-03-01] MEDS: SCOPOLAMINE 1MG TRANSDERMAL PATCH TOP PRN (15:35)
--- NOTE | 2020-03-02 09:49 | DS.PDOC ---
Discharge Summary General Date of Admission Feb 27, 2020 at 02:09 Date of Discharge 03/02/2020 Discharge Summary PROCEDURES PERFORMED DURING STAY: [None]. 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 Chronic HTN Dyslipidemia OA Appendectomy Tonsillectomy Adenoidectomy Partial hysterectomy Laparoscopic cholecystectomy Left rotator cuff repair COMPLICATIONS/CHIEF COMPLAINT: Confusion HISTORY OF PRESENT ILLNESS / HOSPITAL COURSE: Patient is a 75-year-old female with past medical history of diabetes, hypertension, dyslipidemia, who was admitted on 02/11 to 02/13 for management of hyponatremia. Patient had presented to ER this time for confusion and poor appetite that progressed to unresponsive. Upon arrival to emergency room, patient had a CT scan of her brain that revealed multiple hemorrhagic masses. Patient was admitted to the hospital service under comfort measures. Hospice was consulted. However, given her fever initially in the emergency room, she was unable to be transition to hospice house. Patient ultimately was pronounced on 03/02/2020 at 4:25AM. Family was present at the bedside. DISCHARGE MEDICATIONS: Please see below. ALLERGIES: Please see below. PHYSICAL EXAMINATION ON DISCHARGE: Physical exam not completed LABORATORY DATA: Please see below. DISPOSITION: DISCHARGE CONDITION: [Stable]. TIME SPENT ON DISCHARGE: 20 minutes Vital Signs/I&Os Vital Signs Date Time Temp Pulse Resp B/P (MAP) Pulse Ox O2 Delivery O2 Flow Rate FiO2 03/01/20 20:45 2.0 02/27/20 15:40 16 02/27/20 01:59 95 02/27/20 01:58 102.5 02/27/20 01:56 80 02/27/20 01:45 148/67 (94) 02/27/20 00:06 Room Air 94 I&O- Last 24 Hours up to 6 AM 03/02/20 06:00 Intake Total 0 ml Balance 0 ml Microbiology Microbiology 02/26/20 Respiratory Virus Panel (PCR) ([facility]) - Final, Complete 02/26/20 Blood Culture - Preliminary, Resulted No Growth after 72 hours. All specime... 02/26/20 Blood Culture - Preliminary, Resulted No Growth after 72 hours. All specime... Discharge Medications Scheduled Calcium Carbonate/Vitamin D3 (Calcium 600-Vit D3 200 Tablet) 1 Tab Tab, 1 TAB PO DAILY, (Reported) Cholecalciferol (Vitamin D3) (Vitamin D3) 1,000 Unit Tablet, 1,000 UNITS PO DAILY, (Reported) Escitalopram Oxalate (Escitalopram Oxalate) 10 Mg Tab, 10 MG PO QHS, (Reported) Glimepiride (Glimepiride) 2 Mg Tablet, 2 MG PO DAILY, (Reported) Linagliptin (Tradjenta) 5 Mg Tablet, 5 MG PO DAILY, (Reported) Losartan Potassium (Losartan Potassium) 100 Mg Tablet, 100 MG PO DAILY Simvastatin (Simvastatin) 40 Mg Tab, 40 MG PO QHS, (Reported) Allergies Coded Allergies: Sulfa (Sulfonamide Antibiotics) (Verified Allergy, Intermediate, rash, 02/12/20) DIONNA WATKINS MD Mar 02, 2020 09:49
== END 2020-03-02 04:25 | disposition expired | DRG 640 ==
LOC: M ED 22:41 → M ED INP 02-27 02:09 → ENRESERVDT 02-27 02:29 → ENRESERVTM 02-27 02:29 → M MSPAV 02-27 02:55
PROVIDERS: ADMIT Internal Medicine; ATTEND Internal Medicine
DX: E87.1 Hypo-osmolality and hyponatremia (principal); I63.9 Cerebral infarction, unspecified; G93.6 Cerebral edema; G93.5 Compression of brain; G93.41 Metabolic encephalopathy; Z51.5 Encounter for palliative care; I10 Essential (primary) hypertension; M19.90 Unspecified osteoarthritis, unspecified site; E78.5 Hyperlipidemia, unspecified; E11.9 Type 2 diabetes mellitus without complications; Z79.899 Other long term (current) drug therapy; Z79.82 Long term (current) use of aspirin

== ENCOUNTER → 2020-02-26 | Outpatient (REF) | payer MEDICARE, OTHER ==
[2020-02-26 19:55] LABS: BLOOD UREA NITROGEN 10 MG/DL (7-18); CALCIUM LEVEL 9.4 MG/DL (8.8-10.2); CARBON DIOXIDE LEVEL 27 MEQ/L (21-32); CHLORIDE LEVEL 101 MEQ/L (98-107); CREATININE FOR GFR 0.72 MG/DL (0.55-1.30); GLOMERULAR FILTRATION RATE > 60.0 (>39); GLUCOSE, FASTING 201 MG/DL (70-100); POTASSIUM SERUM 3.7 MEQ/L (3.5-5.1); SODIUM LEVEL 136 MEQ/L (136-145)
== END ==
LOC: M LABDRWAD 19:10
PROVIDERS: ATTEND Physician Assistant
DX: E87.1 Hypo-osmolality and hyponatremia (principal)